=== PATIENT | male | born 1965 | race Caucasian/White ===

== ENCOUNTER 2017-01-05 00:05 | Emergency (ER) | payer SELFPAY ==
[~2017-01-05] VITALS: Ht 182.9 cm; Wt 115.0 kg
[~2017-01-05 00:05] MED LIST: NAPROSYN500 MG PO
[2017-01-05 00:36] LABS: HEMATOCRIT 40.9 % (39.0-50.0); HEMOGLOBIN 13.2 g/dl (14.0-18.0); IMMATURE GRANULOCYTES 0.4 % (0.0-1.0); MEAN CORPUSCULAR HGB 25.8 pG CALC (26.0-32.0); MEAN CORPUSCULAR HGB CONC 32.3 g/L CALC (32.0-36.0); NEUT# 4.77 thou/uL (1.82-7.42); RED BLOOD COUNT 5.11 mill/uL (4.70-6.10); RED CELL DISTRI WIDTH 13.7 % (11.5-15.5)
[2017-01-05 00:55] LABS: ALKALINE PHOSPHATASE 75 u/l (38-126); ANION GAP 14 (6-22 (CALC)); BILIRUBIN, TOTAL 0.4 mg/dL (0.0-1.4); BUN 22 mg/dL (9-20); BUN/CREATININE RATIO 24 (12-20 (CALC)); CALCIUM 9.3 mg/dL (8.4-10.2); CARBON DIOXIDE 29 mmol/l (22-30); CHLORIDE 102 mmol/l (95-108); CREATININE 0.9 mg/dL (0.7-1.3); ETHYL ALCOHOL 0 mg/dl (0-30); GFR > 60 ML/MIN (>=60 (CALC)); GFR FOR AFR.AMER. > 60 ML/MIN (>=60 (CALC)); GLUCOSE 142 mg/dL (75-110); SGOT/AST 25 u/l (17-59); SGPT/ALT 34 u/l (21-72); SODIUM 141 mmol/l (137-146); TOTAL PROTEIN 6.7 g/dL (6.3-8.2)
[2017-01-05 00:56] LABS: PROTHROMBIN TIME 10.8 SECONDS (9.0-12.5)
[2017-01-05 01:06] LABS: MYOGLOBIN 144 ng/mL (0 - 121)
[2017-01-05 02:25] LABS: URINE BILIRUBIN - DIPSTICK NEGATIVE (NEGATIVE); URINE BLOOD DIPSTICK NEGATIVE (NEGATIVE); URINE CLARITY CLEAR; URINE COLOR YELLOW; URINE GLUCOSE - DIPSTICK NEGATIVE (NEGATIVE); URINE KETONE NEGATIVE (NEGATIVE); URINE LEUK ESTERASE NEGATIVE (NEGATIVE); URINE NITRITE - DIPSTICK NEGATIVE (Negative); URINE PROTEIN - DIPSTICK NEGATIVE (NEG-TRACE)
[2017-01-05 02:30] LABS: BARBITURATES NEGATIVE (NEGATIVE); COCAINE NEGATIVE (NEGATIVE); METHADONE NEGATIVE (NEGATIVE); TETRAHYDROCANNABIONOL POSITIVE (NEGATIVE); TRICYLIC ANTIDEPRESSANTS NEGATIVE (NEGATIVE)
[2017-01-05 02:31] LABS: OXCYCODONE NEGATIVE (NEGATIVE)
[2017-01-05 03:30] VITALS: BP 138/67
== END 2017-01-05 03:30 | DRG 605 ==
LOC: ED 00:05
DX: S71.011A Laceration without foreign body, right hip, initial encounter (principal); R20.0 Anesthesia of skin; W45.8XXA Other foreign body or object entering through skin, initial encounter; Y92.009 Unspecified place in unspecified non-institutional (private) residence as the place of occurrence of the external cause
CPT/HCPCS: Q9967

== ENCOUNTER 2017-07-22 11:16 | Emergency (ER) | payer SELFPAY ==
[~2017-07-22] VITALS: Ht 182.9 cm; Wt 163.0 kg
[2017-07-22 12:28] LABS: HEMATOCRIT 43.1 % (39.0-50.0); HEMOGLOBIN 14.4 g/dl (14.0-18.0); IMMATURE GRANULOCYTES 1.5 % (0.0-1.0); MEAN CELL VOLUME 79.1 fL CALC (80.0-100.0); MEAN CORPUSCULAR HGB 26.4 pG CALC (26.0-32.0); MEAN CORPUSCULAR HGB CONC 33.4 g/L CALC (32.0-36.0); NEUT# 6.56 thou/uL (1.82-7.42); RED BLOOD COUNT 5.45 mill/uL (4.70-6.10); RED CELL DISTRI WIDTH 14.6 % (11.5-15.5)
[2017-07-22 12:44] LABS: URINE BILIRUBIN - DIPSTICK NEGATIVE (NEGATIVE); URINE BLOOD DIPSTICK NEGATIVE (NEGATIVE); URINE COLOR YELLOW; URINE GLUCOSE - DIPSTICK NEGATIVE (NEGATIVE); URINE KETONE NEGATIVE (NEGATIVE); URINE LEUK ESTERASE NEGATIVE (NEGATIVE); URINE NITRITE - DIPSTICK NEGATIVE (Negative); URINE PROTEIN - DIPSTICK NEGATIVE (NEG-TRACE); URINE SPECIFIC GRAVITY 1.025; URINE UROBILINOGEN - DIPSTICK 0.2 E.U./dL (0.2)
[2017-07-22 12:45] LABS: BARBITURATES NEGATIVE (NEGATIVE); COCAINE NEGATIVE (NEGATIVE); METHADONE NEGATIVE (NEGATIVE); OXCYCODONE NEGATIVE (NEGATIVE); TETRAHYDROCANNABIONOL NEGATIVE (NEGATIVE); TRICYLIC ANTIDEPRESSANTS NEGATIVE (NEGATIVE); URINE CLARITY CLEAR
[2017-07-22 12:46] LABS: ALBUMIN 4.1 g/dL (3.2-5.0); ALKALINE PHOSPHATASE 85 u/l (38-126); ANION GAP 18 (6-22 (CALC)); BILIRUBIN, TOTAL 0.5 mg/dL (0.0-1.4); BUN 15 mg/dL (9-20); BUN/CREATININE RATIO 19 (12-20 (CALC)); CALCIUM 9.8 mg/dL (8.4-10.2); CARBON DIOXIDE 23 mmol/l (22-30); CHLORIDE 103 mmol/l (95-108); CREATININE 0.8 mg/dL (0.7-1.3); GFR > 60 ML/MIN (>=60 (CALC)); GFR FOR AFR.AMER. > 60 ML/MIN (>=60 (CALC)); GLUCOSE 101 mg/dL (75-110); POTASSIUM 4.4 mmol/l (3.5-5.1); SGOT/AST 27 u/l (17-59); SGPT/ALT 34 u/l (21-72); SODIUM 140 mmol/l (137-146); TOTAL PROTEIN 6.9 g/dL (6.3-8.2)
[2017-07-22 12:57] LABS: MYOGLOBIN 66 ng/mL (0 - 121)
[2017-07-22] MEDS ORDERED: NAPROSYN500 MG PO (16:26)
[2017-07-22] MEDS ORDERED: FLEXERIL PO (16:26)
[2017-07-22 16:30] VITALS: BP 139/74
== END 2017-07-22 16:30 | disposition home or self-care (01) | DRG 948 ==
LOC: ED 11:16
PROVIDERS: Emergency Medicine
DX: R53.1 Weakness (principal); M47.817 Spondylosis without myelopathy or radiculopathy, lumbosacral region; R14.0 Abdominal distension (gaseous); R10.84 Generalized abdominal pain

== ENCOUNTER 2022-02-24 11:51 | Emergency (ER) | payer SELFPAY ==
[~2022-02-24] VITALS: Ht 182.9 cm; Wt 140.3 kg
[2022-02-24] VITALS (11 sets, daily range): BP systolic 126–181; BP diastolic 77–109
[~2022-02-24 11:51] MED LIST changes: +FLEXERIL PO
[2022-02-24 12:32] LABS: HEMATOCRIT 47.8 % (39.0-50.0); HEMOGLOBIN 15.5 g/dl (14.0-18.0); IMMATURE GRANULOCYTES 0.2 % (0.0-5.0); MEAN CELL VOLUME 77.3 fL CALC (80.0-100.0); MEAN CORPUSCULAR HGB 25.1 pG CALC (26.0-32.0); MEAN CORPUSCULAR HGB CONC 32.4 g/dL CAL (32.0-36.0); NEUT# 7.59 thou/uL (1.82-7.42); RED BLOOD COUNT 6.18 mill/uL (4.70-6.10); RED CELL DISTRI WIDTH 14.1 % (11.5-15.5)
[2022-02-24 12:41] LABS: ALBUMIN 4.7 g/dL (3.2-5.0); ALKALINE PHOSPHATASE 106 u/l (38-126); ANION GAP 17 (6-22 (CALC)); BUN 25 mg/dL (9-20); BUN/CREATININE RATIO 15 (12-20 (CALC)); CARBON DIOXIDE 25 mmol/l (22-30); CHLORIDE 100 mmol/l (95-108); CREATININE 1.7 mg/dL (0.7-1.3); GFR FOR AFR.AMER. 50 ML/MIN (>=60 (CALC)); GFR OTHER RACES 42 ML/MIN (>=60 (CALC)); LIPASE 146 u/l (23-300); POTASSIUM 4.3 mmol/l (3.5-5.1); SGOT/AST 21 u/l (17-59); SODIUM 137 mmol/l (137-146)
[2022-02-24 12:42] LABS: BILIRUBIN, TOTAL 0.8 mg/dL (0.0-1.4); TOTAL PROTEIN 8.6 g/dL (6.3-8.2)
[2022-02-24] MEDS ORDERED: HYDROCHLOROT12.5 M1 PO (15:14)
== END 2022-02-24 15:26 | disposition home or self-care (01) | DRG 149 ==
LOC: ED 11:51
PROVIDERS: Family Medicine
DX: H81.10 Benign paroxysmal vertigo, unspecified ear (principal); I10 Essential (primary) hypertension; F17.210 Nicotine dependence, cigarettes, uncomplicated
CPT/HCPCS: Q9967

== ENCOUNTER 2024-06-22 16:22 | Observation (INO) | payer OTHER ==
[~2024-06-22] VITALS: Ht 182.9 cm; Wt 143.0 kg
[2024-06-22] VITALS (7 sets, daily range): BP systolic 165–182; BP diastolic 90–110
[~2024-06-22 16:22] MED LIST changes: +HYDROCHLOROT12.5 M1 PO
--- NOTE | 2024-06-22 16:22 | NUR ---
PT BROUGHT IN VIA EMS
[2024-06-22] MEDS ORDERED: ONDANSETRON HCl 4 MG/2 ML SDV IV ONE (16:50)
[2024-06-22 17:00] LABS: HEMATOCRIT 40.2 % (39.0-50.0); HEMOGLOBIN 12.9 g/dl (14.0-18.0); IMMATURE GRANULOCYTES 1.3 % (0.0-5.0); MEAN CELL VOLUME 75.3 fL CALC (80.0-100.0); MEAN CORPUSCULAR HGB 24.2 pG CALC (26.0-32.0); MEAN CORPUSCULAR HGB CONC 32.1 g/dL CAL (32.0-36.0); PLATELET COUNT 234 thou/uL (130-400); RED BLOOD COUNT 5.34 mill/uL (4.70-6.10); RED CELL DISTRI WIDTH 15.6 % (11.5-15.5)
[2024-06-22 17:16] LABS: MANUAL DIFFERENTIAL YES; PROTHROMBIN TIME 11.1 SECONDS (9.0-12.5)
[2024-06-22 17:18] LABS: ALBUMIN 4.3 g/dL (3.2-5.0); ALKALINE PHOSPHATASE 99 u/l (38-126); ANION GAP 12 (6-22 (CALC)); BILIRUBIN, TOTAL 0.6 mg/dL (0.2-1.3); BUN 22 mg/dL (8-23); BUN/CREATININE RATIO 17 (12-20 (CALC)); CALCULATED LDLCHOLESTEROL 43 mg/dL (62-129 (CALC)); CARBON DIOXIDE 26 mmol/l (22-30); CHLORIDE 102 mmol/l (95-108); CHOLESTEROL HDL RATIO 4.5 (<4.4 (CALC)); CREATININE 1.3 mg/dL (0.7-1.3); ESTIMATED GFR 63 ML/MIN (>=90 (CALC)); HDL CHOLESTEROL 32 mg/dL (39.0-59.0); POTASSIUM 4.4 mmol/l (3.5-5.1); SODIUM 136 mmol/l (137-146); TOTAL CHOLESTEROL 144 mg/dl (0-199); TOTAL PROTEIN 8.2 g/dL (6.3-8.2); TOTAL TRIGLYCERIDES 345 mg/dl (0-149); VLDL CHOLESTROL 69 mg/dl (4-45 (CALC))
[2024-06-22 17:19] LABS: BAND 2 % (0-8)
[2024-06-22 17:20] LABS: PLATELET ESTIMATE NORMAL
[2024-06-22 17:21] LABS: ANISOCYTOSIS FEW; SGOT/AST 40 u/l (19-48)
--- NOTE | 2024-06-22 18:15 | NUR ---
PT COMFORTABLE IN BED-NO CHANGE IN ASSESSMENT.
--- NOTE | 2024-06-22 19:10 | NUR ---
PT HEIDE. NO C/O. ASSUMED CARE. VSS
--- NOTE | 2024-06-22 20:15 | NUR ---
PT RETURNED FROM [facility]. JACKY.
[2024-06-22] MEDS ORDERED: Pantoprazole Sodium 40 MG VIAL (Protonix) IV SCH (20:34)
[2024-06-22] MEDS ORDERED: ACETAMINOPHEN 325 MG/TAB PO PRN (20:35)
[2024-06-22] MEDS ORDERED: MAGNESIUM HYDROXIDE 30 ML UDC PO PRN (20:35)
[2024-06-22] MEDS ORDERED: DEXTROSE 250 ML IV PRN (20:35)
[2024-06-22] MEDS ORDERED: SODIUM CHLORIDE 0.9% 1,000 ML IV PRN (20:35)
[2024-06-22] MEDS ORDERED: hydrALAZINE HCL 20 MG/ML VIAL(1 ML) IV PRN (20:40)
[2024-06-22] MEDS ORDERED: ONDANSETRON HCl 4 MG/2 ML SDV IV PRN (20:40)
[2024-06-22] MEDS ORDERED: ENOXAPARIN SODIUM 40 MG/0.4 ML SYR SC SCH (21:00)
--- NOTE | 2024-06-22 23:41 | NUR ---
REPORT CALLED TO ICU
[2024-06-23] VITALS (48 sets, daily range): BP systolic 124–222; BP diastolic 49–113
--- NOTE | 2024-06-23 | NUR ---
PT READY FOR ADMISSION...VOMITING AGAIN. DR. HARDWICK NOTIFIED. WILL PUT IN ADDITIONAL MED
--- NOTE | 2024-06-23 | NUR ---
ROUNDING COMPLETE. ASSESSMENT UNCHANGED. DENIES CONCERNS AT THIS TIME. AFEBRILE 97.8. NO APPARENT DISTRESS NOTED. WILL CONTINUE WITH PLAN OF CARE
--- NOTE | 2024-06-23 00:10 | NUR ---
PT MEDICATED FOR VOMITING WITH THE 3RD DOSE OF ZOFRAN. NO VOMITING EN ROUTE TO THE FLOOR.
--- NOTE | 2024-06-23 01:46 | NUR ---
PATIENT ARRIVED TO THE UNIT AT 0018 VIA STRETCHER ACCOMPAINED BY CEM HARRINGTON. PATIENT WALKED TO BE WITH MAX ASSIST. ASSESSMENT COMPLETED (SEE INTERVENTIONS). PATIENT ORIENTED TO ROOM AND CALL DEAL SYSTEM. PATIENT STATES HE HAS DIAGNOSED SLEEP APNEA, BUT DENIES USING CPAP. PATIENT NOTED TO BE HYPERTENSIVE, BUT RECEIVED ORDERED HYDRALAZINE IN ER. SAFETY MEASURES IN PLACE INCLUDING BED IN LOW POSITION AND CALL LIGHT RESTING ON CHEST. NO APPARENT DISTRESS NOTED. WILL CONTINUE TO MONITOR BP
--- NOTE | 2024-06-23 01:49 | NUR ---
PATIENT APPEARS TO BE RESTING WITH EYES CLOSED. BP DOWN TO 159/84. NO APPARENT DISTRESS NOTED. WILL CONTINUE WITH PLAN OF CARE
--- NOTE | 2024-06-23 04:19 | NUR ---
ROUNDING COMPLETE. ASSESSMENT UNCHANGED. AFEBRILE 98.7. BP 191/79 AFTER IV HYDRALAZINE, PROVIDER CONTACTED. ORDER GIVEN FOR AMLODIPINE 10MG PO. WILL CONTINUE TO MONITOR PATIENT'S BP.
[2024-06-23] MEDS ORDERED: amLODIPine BESYLATE 5 MG/TAB PO SCH ×2 (04:35→21:00)
--- NOTE | 2024-06-23 04:48 | NUR ---
PATIENT REFUSED THE ONE TIME DOSE OF AMLODIPINE 10MG AT THIS TIME FOR FEAR OF "THROWING IT UP". STATED IT WAS HARD TO "KEEP THE OTHER ONE DOWN" - TYLENOL. PATIENT EDUCATED ON THE IMPORTANCE OF BP CONTROL, VEBALIZED UNDERSTANDING AND WANTS TO "KEEP THE IV ONE FOR NOW". WILL CONTINUE WITH PLAN OF CARE.
[2024-06-23 05:16] LABS: URINE BILIRUBIN - DIPSTICK Negative (NEGATIVE); URINE BLOOD DIPSTICK Negative (NEGATIVE); URINE GLUCOSE - DIPSTICK Negative (NEGATIVE); URINE KETONE Negative (NEGATIVE); URINE LEUK ESTERASE Negative (NEGATIVE); URINE NITRITE - DIPSTICK Negative (Negative); URINE PROTEIN - DIPSTICK >=300 mg/dL (NEG-TRACE); URINE SPECIFIC GRAVITY 1.015; URINE UROBILINOGEN - DIPSTICK 0.2 E.U./dL (0.2)
[2024-06-23 05:21] LABS: URINE COLOR Yellow
[2024-06-23 05:21] LABS: BASO% 0.3 % (0-3); EOS% 0.1 % (0-8); HEMATOCRIT 41.1 % (39.0-50.0); HEMOGLOBIN 13.3 g/dl (14.0-18.0); IMMATURE GRANULOCYTES 1.2 % (0.0-5.0); LYMPH% 20.7 % (15-41); MEAN CELL VOLUME 74.9 fL CALC (80.0-100.0); MEAN CORPUSCULAR HGB 24.2 pG CALC (26.0-32.0); MEAN CORPUSCULAR HGB CONC 32.4 g/dL CAL (32.0-36.0); NEUT# 4.87 thou/uL (1.82-7.42); NEUT% 71.7 % (42-76); RED BLOOD COUNT 5.49 mill/uL (4.70-6.10); RED CELL DISTRI WIDTH 15.6 % (11.5-15.5)
[2024-06-23 05:25] LABS: URINE RBC 0-2 RBC/hpf (0-5)
[2024-06-23 05:45] LABS: ALBUMIN 4.2 g/dL (3.2-5.0); BILIRUBIN, TOTAL 0.6 mg/dL (0.2-1.3); CREATININE 1.2 mg/dL (0.7-1.3); MAGNESIUM 1.8 mg/dL (1.6-2.3); POTASSIUM 4.5 mmol/l (3.5-5.1); TOTAL PROTEIN 7.7 g/dL (6.3-8.2)
--- NOTE | 2024-06-23 07:16 | NUR ---
DR FENG IN ROOM
[2024-06-23] MEDS ORDERED: AZITHROMYCIN 500 MG in SODIUM CHLORIDE 0.9% 500 ML IV SCH (08:00)
[2024-06-23] MEDS ORDERED: ASPIRIN EC 81 MG/TAB PO SCH (09:00)
[2024-06-23] MEDS ORDERED: LOSARTAN Potassium 50 MG/TAB PO SCH (09:00)
--- NOTE | 2024-06-23 10:04 | NUR ---
PT RFUSING ORAL MEDICATIONS DUE TO NAUSEA. CASE TECHNICIAN QUINCY NOTIFIED.
--- NOTE | 2024-06-23 14:30 | NUR ---
PATIENT HEADING TO MRI
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
--- NOTE | 2024-06-23 15:10 | NUR ---
PT TO CT WITH PROCESS CHEESE COOKER FOR CT BRAIN W/O CONTRAST PER PHYSICIAN
--- NOTE | 2024-06-23 17:58 | NUR ---
PT WAS ABLE TO STAND AND TRANSFER TO WHEELCHAIR WITH MINIMAL ASSISTANC TWIC TODAY. STILL VERY DROWSY, BUT EASILY AROUSABLE AND AOx4.
--- NOTE | 2024-06-23 20:00 | NUR ---
RN assume care for this patient at this time. Patient is resting in bed. denies nausea or pain. Patient request for ice water, which was given. Call light within reach. Patient verbalizes understands not to get out of bed without assistance.
[2024-06-23] MEDS ORDERED: ATORVASTATIN CALCIUM 20 MG/TAB PO SCH (21:00)
--- NOTE | 2024-06-23 22:00 | NUR ---
Patient sleeping. No changes in assessment
[2024-06-23] MEDS ORDERED: ONDANSETRON HCl 4 MG/2 ML SDV IV ONE (23:55)
[2024-06-24] VITALS (22 sets, daily range): BP systolic 95–217; BP diastolic 63–101
--- NOTE | 2024-06-24 00:06 | NUR ---
Patient sleeping. VS within parameters. No changing in assessment
--- NOTE | 2024-06-24 02:00 | NUR ---
Patient request for the urinal. Patient reports no complain and claim to be comfortable in bed. No changes in reassessment
--- NOTE | 2024-06-24 04:00 | NUR ---
Pulse OX replaced. Patient is sleeping. No changes in reassessment
--- NOTE | 2024-06-24 06:04 | NUR ---
BP replace to R arm. Urinal empty. Water refilled. Patient has no new complains. No change in reassessent
[2024-06-24] MEDS ORDERED: ATORVASTATIN CA20 MG PO (08:07)
[2024-06-24] MEDS ORDERED: AMLODIPINE BESYL5 MG PO (08:08)
[2024-06-24] MEDS ORDERED: ASPIRIN LOW81 M1 PO (08:08)
[2024-06-24] MEDS ORDERED: COZAAR25 MG PO (08:09)
--- NOTE | 2024-06-24 08:33 | NUR ---
pt states he does not think he can take care of himself. Asking for case fitter to place him at the [place]. CM to come talk to pt.
--- NOTE | 2024-06-24 08:38 | NUR ---
Discharge cancelled. Pt does not feel safe to go home and so will be downgraded and SNF placement will be attempted.
[2024-06-24] MEDS ORDERED: hydrALAZINE HCL 20 MG/ML VIAL(1 ML) IV PRN (10:00)
--- NOTE | 2024-06-24 20:00 | NUR ---
RN assume care for this patient for degreaser. Patient is resting comfortably in bed. Denies pain, nausa. No complains. Denies offer to eat dinner. Refuse bath and oral care. Education provided. Call light and belongings within reach. Bed alarm on. Patient educated by RN to call for assistance before getting out of bed. Patient verbilizes understanding.
--- NOTE | 2024-06-24 22:00 | NUR ---
Patient sleeping. BP elevated. Hydralazine PRN given. No changes in reassessment
[2024-06-25] VITALS (14 sets, daily range): BP systolic 128–201; BP diastolic 67–134
--- NOTE | 2024-06-25 00:20 | NUR ---
Patient sleeping. No signs of distress noted. Urinal emptied. No changes in reassessment
--- NOTE | 2024-06-25 03:30 | NUR ---
Patient IV beeping. New bag of NS started. Patient sleeping comfortably in bed. No signs of acute distress. Urinal emptied.
--- NOTE | 2024-06-25 08:05 | NUR ---
BEDSIDE REPORT RECEIVED FROM OFF GOING NURSE. PATIENT AWAKE IN BED AND ASKING FOR A SHOWER AT THIS TIME. PATIENT EATING BREAKFAST AT THIS TIME. PROVIDER IN TO SEE PATIENT AND APPROVES SHOWER. NEW ORDERS RECEIVED. RESPIRATIONS EVEN AND UNLABORED ON ROOM AIR. CALL LIGHT WITHIN REACH.
[2024-06-25] MEDS ORDERED: SODIUM CHLORIDE 0.9% 0 ML IV ONE (09:05)
[2024-06-25] MEDS ORDERED: GABAPENTIN 300 MG/CAP PO SCH (15:00)
--- NOTE | 2024-06-25 16:55 | NUR ---
PATIENT FAMILY IN TO VISIT AT THIS TIME. NIECE HAS QUESTIONS REGARDING CARE AND ESTABLISHING POA FOR THIS PATIENT TO ASSIST WITH POST DISCHARGE CARE. PATIENT RESTING IN BED AND TALKATIVE WITH FAMILY. RESPIRATIONS EVEN AND UNLABORED ON ROOM AIR. NON-PRODUCTIVE COUGH NOTED. WATER PROVIDED. SAFETY MEASURES IN PLACE. CALL LIGHT WITHIN REACH.
--- NOTE | 2024-06-25 18:36 | NUR ---
REPORT GIVEN TO MED SURG NURSE WHO WILL BE RECEIVING PATIENT. PATIENT HAS ORDER TO TRANSFER TO MED SURG FLOOR.
--- NOTE | 2024-06-25 18:53 | NUR ---
PATIENT TRANSFERRED FROM ICU3 TO ROOM 269. PATIENT A&OX3 AND ABLE TO MAKE NEEDS KNOWN. PATIENT ORIENTED TO ROOM, CALL LIGHT AND SURROUNDINGS. PATIENT DENIES ANY NEEDS AT THIS TIME.
[2024-06-25] MEDS ORDERED: amLODIPine BESYLATE 5 MG/TAB PO SCH (21:00)
[2024-06-26 04:38] LABS: BASO% 0.5 % (0-3); EOS% 2.7 % (0-8); HEMATOCRIT 39.2 % (39.0-50.0); HEMOGLOBIN 12.5 g/dl (14.0-18.0); IMMATURE GRANULOCYTES 3.5 % (0.0-5.0); LYMPH% 24.6 % (15-41); MEAN CORPUSCULAR HGB 24.6 pG CALC (26.0-32.0); MEAN CORPUSCULAR HGB CONC 31.9 g/dL CAL (32.0-36.0); MONO% 10.9 % (2-13); NEUT# 4.44 thou/uL (1.82-7.42); NEUT% 57.8 % (42-76); RED BLOOD COUNT 5.09 mill/uL (4.70-6.10); RED CELL DISTRI WIDTH 15.8 % (11.5-15.5)
[2024-06-26 04:39] LABS: ALBUMIN 3.6 g/dL (3.2-5.0); BILIRUBIN, TOTAL 0.6 mg/dL (0.2-1.3); CREATININE 1.2 mg/dL (0.7-1.3); MAGNESIUM 1.9 mg/dL (1.6-2.3); POTASSIUM 4.3 mmol/l (3.5-5.1); TOTAL PROTEIN 6.7 g/dL (6.3-8.2)
[2024-06-26 06:11] VITALS: BP 169/80
--- NOTE | 2024-06-26 07:01 | NUR ---
PATIENT LAYING IN BED. PATIENT A&OX3 AND ABLE TO MAKE NEEDS KNOWN. PATIENT DENIES ANY NEEDS AT THIS TIME.
[2024-06-26 08:19] VITALS: BP 169/80
[2024-06-26] MEDS ORDERED: AZITHROMYCIN 250 MG/TAB PO SCH (09:00)
[2024-06-26] MEDS ORDERED: PANTOPRAZOLE SODIUM Sesquihydr 40 MG/TAB PO SCH (09:00)
--- NOTE | 2024-06-26 11:43 | NUR ---
PATIENT LAYING IN BED. PATIENT DENIES ANY NEEDS AT THIS TIME.
--- NOTE | 2024-06-26 13:07 | NUR ---
Discharge instructions given. Patient verbalizes understanding of same. Discharged in stable condition via Wheelchair to Home with staff. All belongings sent with pt. PATIENT IV REMOVED, PATIENT TOLERATED WELL.
== END 2024-06-26 13:03 | disposition home or self-care (01) ==
LOC: ED 16:22 → ED-I 20:20 → ED 20:32 → ICU 20:33 → MS2 06-25 18:45
PROVIDERS: Internal Medicine; Nurse Practitioner; Nurse Practitioner Family; ADMIT Internal Medicine; ATTEND Internal Medicine
DX: R47.81 Slurred speech (principal); R11.2 Nausea with vomiting, unspecified; R19.7 Diarrhea, unspecified; F15.10 Other stimulant abuse, uncomplicated; I16.0 Hypertensive urgency; I10 Essential (primary) hypertension; F17.200 Nicotine dependence, unspecified, uncomplicated; Z18.11 Retained magnetic metal fragments; Z74.2 Need for assistance at home and no other household member able to render care; Z20.822 Contact with and (suspected) exposure to COVID-19
CPT/HCPCS: G0378; J0360; J0456; J1650; J2405; J2470; Q9967

== ENCOUNTER 2024-09-14 12:21 | Emergency (ER) | payer OTHER ==
[2024-09-14] VITALS (7 sets, daily range): BP systolic 130–163; BP diastolic 86–110
[~2024-09-14] VITALS: Ht 182.9 cm; Wt 145.0 kg
[~2024-09-14 12:21] MED LIST changes: +AMLODIPINE BESYL5 MG PO; +ASPIRIN LOW81 M1 PO; +ATORVASTATIN CA20 MG PO; +COZAAR25 MG PO
[2024-09-14] MEDS ORDERED: CARBAMIDE PEROXIDE 6.5 % BTL AD ONE (12:50)
[2024-09-14] MEDS ORDERED: FLOXIN OTIC0.3 % AD (14:14)
== END 2024-09-14 14:37 | disposition home or self-care (01) | DRG 156 ==
LOC: ED 12:21
PROC: 3E1B78Z Irrigation of Ear using Irrigating Substance, Via Natural or Artificial Opening (ICD-10-PCS; principal; 2024-09-14)
DX: H61.21 Impacted cerumen, right ear (principal); I10 Essential (primary) hypertension; Z72.0 Tobacco use